=== PATIENT | female | born 2000 | race Caucasian/White ===

== ENCOUNTER 2023-12-08 21:46 | Emergency (ER) | payer MEDICAID ==
[~2023-12-08] VITALS: Ht 157.5 cm; Wt 53.0 kg
[2023-12-08 22:27] VITALS: O2SAT 100
[2023-12-09 01:23] VITALS: BP 118/73; PULSE 101; RESP 12; TEMP 98.3
== END 2023-12-09 00:15 | disposition left against medical advice (07) ==
LOC: ER 21:46
DX: R21 Rash and other nonspecific skin eruption (principal); Z53.21 Procedure and treatment not carried out due to patient leaving prior to being seen by health care provider
CPT/HCPCS: 99281